=== PATIENT | female | born 1960 | race Caucasian/White ===

== ENCOUNTER 2021-09-06 10:02 | Emergency (ER) | payer BC ==
[2021-09-06 10:57] VITALS: RESP 18
[2021-09-06] MEDS ORDERED: ACETAMINOPHEN TAB 500 MG TAB PO STA (11:41)
[2021-09-06] MEDS ORDERED: ONDANSETRON ODT 4 MG TAB PO STA (11:57)
--- NOTE | 2021-09-06 12:00 | ED ---
General Adult HPI - General Chief complaint: Fever Stated complaint: N/V,Headache,Fatigue Time Seen by Provider: 09/06/21 11:50 Source: patient, RN notes reviewed, old records reviewed Mode of arrival: ambulatory Limitations: no limitations - History of Present Illness Initial comments: 61-year-old well-appearing female presents to the emergency room with complaints of nausea, fever, fatigue and body aches since August 28. She states that she has increasing sinus pressure and a popping in her right ear. States that she bends over it increases the pain in her head. She does have pain with sinus pressure. She denies any medical history, no medicines on a daily basis. She states that she did try Claritin with no relief. She states that her has similar symptoms -: days(s) (9) Location: head Severity scale (1-10): 4 Quality: aching Consistency: constant Improves with: none Worsens with: other (sinus pressure) Associated Symptoms: fever/chills, headaches, nausea/vomiting Treatments Prior to Arrival: none - Related Data Previous Rx's Medication Instructions Recorded Amoxicillin/Potassium Clav 1 tab PO Q12HR 7 Days #14 tab 09/06/21 [Augmentin 875-125 Tablet] Allergies Allergy/AdvReac Type Severity Reaction Status Date / Time Antihistamines - Alkylamine AdvReac Unknown Verified 09/06/21 10:58 Review of Systems ROS Statement: Those systems with pertinent positive or pertinent negative responses have been documented in the HPI. ROS Other: All systems not noted in ROS Statement are negative. Past Medical History Past Medical History: No Reported History History of Any Multi-Drug Resistant Organisms: None Reported Past Surgical History: Uterine Ablation Past Psychological History: No Psychological Hx Reported Smoking Status: Never smoker Past Alcohol Use History: Occasional Past Drug Use History: None Reported General Exam Limitations: no limitations General appearance: alert, in no apparent distress Head exam: Present: atraumatic, normocephalic, normal inspection Eye exam: Present: normal appearance, PERRL, EOMI. Absent: scleral icterus, conjunctival injection, nystagmus, periorbital swelling, periorbital tenderness ENT exam: Present: normal exam, normal oropharynx, mucous membranes moist, TM's normal bilaterally, normal external ear exam Neck exam: Present: normal inspection, full ROM. Absent: tenderness, meningismus, lymphadenopathy, thyromegaly Respiratory exam: Present: normal lung sounds bilaterally. Absent: respiratory distress, wheezes, rales, rhonchi, stridor, chest wall tenderness, accessory muscle use, decreased breath sounds Cardiovascular Exam: Present: tachycardia, normal heart sounds. Absent: JVD GI/Abdominal exam: Present: soft, normal bowel sounds. Absent: distended, ten derness, guarding, rebound, rigid Back exam: Present: normal inspection, full ROM. Absent: tenderness, CVA tenderness (R), CVA tenderness (L), rash noted Neurological exam: Present: alert, oriented X3, normal gait Psychiatric exam: Present: normal affect, normal mood Skin exam: Present: warm, dry, intact, normal color. Absent: rash, cyanosis, diaphoretic, petechiae, pallor Course Vital Signs 09/06/21 09/06/21 09/06/21 10:54 11:19 13:14 Temperature 100.5 F H 98.9 F Pulse Rate 104 H 73 Respiratory 18 18 18 Rate Blood Pressure 113/68 110/54 O2 Sat by Pulse 97 97 Oximetry Medical Decision Making - Medical Decision Making 61-year-old well appearing patient presents to the emergency room with complaints of sinus pressure, headaches, body aches, fever and fatigue. She did test positive for coronavirus in the emergency room today. She was given Zofran for nausea. She was also prescribed Augmentin for sinus infection due to sinus pressure, fever and headaches. She was instructed to self quarantine for 10 days from symptom onset and 24 hours without a fever. Return to the emergency room for any new or worsening symptoms. Take vitamin C, vitamin D and zinc da candelario. He will follow up with his primary care doctor. Case discussed with Dr. Bradshaw - Lab Data Lab Results 09/06/21 Range/Units 11:40 Influenza Type A (PCR) Not Detected (Not Detectd) Influenza Type B (PCR) Not Detected (Not Detectd) RSV (PCR) Not Detected (Not Detectd) SARS-CoV-2 (PCR) Detected A (Not Detectd) Disposition Clinical Impression: Sinusitis, COVID-19 Disposition: HOME SELF-CARE Condition: Good Instructions (If sedation given, give patient instructions): Coronavirus Disease 2019 (COVID-19), Sinusitis (ED), Fever in Adults (ED) Additional Instructions: Increase your fluid intake. Take deep breaths and cough throughout the day to prevent pneumonia. Take antibiotics as prescribed for sinus infection. Self quarantine for 10 days from symptom onset and 24 hours without fever. Follow-up with the primary care doctor next week. Return to the emergency room with any new or worsening symptoms. Prescriptions: Amoxicillin/Potassium Clav [Augmentin 875-125 Tablet] 1 tab PO Q12HR 7 Days #14 tab Is patient prescribed a controlled substance at d/c from ED?: No Referrals: Bart Weinstein MD [Primary Care Provider] - 1-2 days Time of Disposition: 12:58
[2021-09-06] MEDS ORDERED: ONDANSETRON 4 MG ODT STARTER PACK 2 TAB BTL PO STA (12:54)
[2021-09-06] MEDS ORDERED: AMOXIC-POT CLAV 875-125MG 1 EACH TAB PO STA (12:54)
[2021-09-06 13:15] VITALS: BP 110/54; PULSE 73; TEMP 98.9
== END 2021-09-06 13:18 | disposition home or self-care (01) ==
LOC: EC 10:02
DX: R51.9 Headache, unspecified (principal); U07.1 COVID-19; J32.9 Chronic sinusitis, unspecified; Z88.8 Allergy status to other drugs, medicaments and biological substances
CPT/HCPCS: 87636; 99284; S0119